=== PATIENT | female | born 1955 | race Caucasian/White ===

== ENCOUNTER 2018-10-14 18:20 | Inpatient (IN) | payer BC ==
[~2018-10-14] VITALS: Ht 172.7 cm; Wt 86.0 kg
--- NOTE | ~2018-10-14 | HEMODYNAMI ---
PATIENT:MICKY GARCIA MEDICAL RECORD: [id number] : 55 LOCATION:[facility] D.2138 ADMISSION DATE: 10/14/18 Generatedon:10/15/201811:21 Patient name: MICKY GARCIA Patient #: [id number] SSN: : 1955 Date of study: 10/15/2018 Page: Of Hemodynamic Procedure Report Patient Data Patient Demographics Procedure consent was obtained First Name: MICKY Gender: Female Last Name: JOSE : 1955 Middle Initial: PREETI Age: 63 year(s) Patient #: [id number] Race: Unknown Additional ID: [id number] Contact details [address]: [address] [place] [address] State: [place] City: [place] Zip code: [address] Past Medical History Allergies Allergen Reaction Date Comments Reported Codeine 10/15/2018 Other allergy 10/15/2018 benadryl Admission Admission Data Admission Date: 10/14/2018 Admission Time: 20:34 Room #: D.2138 Procedure Procedure Types Cath Procedure Diagnostic Procedure [facility] w/Coronaries Sedation Charges Moderate Sedation up to 30 minutes PCI Procedure Coronary Stent Coronary Stent Initial Procedure Description Procedure Date Procedure Date: 10/15/2018 Procedure Start Time: 10:35 Procedure End Time: 11:20 Procedure Staff Name Function Karthikeyan Mays MD Performing Physician Tatiana De León RT Monitor Monique Turner RN Nurse Jermain Garcia RT Scrub Procedure Data Cath Procedure Fluoroscopy Diagnostic fluoroscopy Total fluoroscopy Time: 6.1 time: 6.1 min min Diagnostic fluoroscopy Total fluoroscopy dose: 390 dose: 390 mGy mGy Contrast Material Contrast Material Type Amount (ml) Isovue 300 170 Entry Location Entry Primary Successful Side Size Upsize Upsize Entry Closure Ordoñez ccessful Closure Location (Fr) 1 (Fr) 2 (Fr) Remarks Device Remarks Femoral Right 5 Fr Manual vein Compression Femoral Right 5 Fr 6 Fr Exoseal artery Short Estimated blood loss: 5 ml Diagnostic catheters Device Type Used For End Catheter Placement MULTIPACK JL 4.0 5Fr Left Coronary catheter Angiography MULTIPACK 3DRC 5Fr Right Coronary catheter Angiography MULTIPACK Pigtail 5 Fr LV Angiography catheter Procedure Complications No complications Procedure Medications Medication Administration Route Dosage Oxygen etCO2 Nasal cannula 2 l/min Lidocaine 2% added to field 20 Heparin Flush Bag added to field 2 bags (1000units/500ml NS) 0.9% NaCl I.V. 100 ml/hr Versed I.V. 1 mg Fentanyl I.V. 50 mcg Versed I.V. 1 mg Fentanyl I.V. 25 mcg Heparin Bolus I.V. 8500 units Nitroglycerin IC/IA I.C. 100 mcg Nitroglycerin IC/IA I.C. 100 mcg Fentanyl I.V. 25 mcg Integrilin (Bolus I.V. 7.9 ml 2mg/ml) Morphine I.V. 4 mg unlisted medication 1 Effient P.O. 60 mg Hemodynamics Rest Heart Rate: 60 (bpm) Pressure Samples Time Site Value (mmHg) Purpose Heart Use Rate(bpm) 10:46 LV 123/13,28 EDP 59 10:47 AO 132/77(98) Pullback 63 10:47 LV 125/10,28 Pullback 63 Gradients Valve Time Site 1 Site 2 Mean SEP/DFP Peak To Heart Use (mmHg) (sec/min) Peak Rate (mmHg) (bpm) Aortic 10:47 LV AO 0 12 0 63 125/10,28 132/77(98) Calculations Valve P-P Mean Valve Index Valve Source Name Gradient Area Flow (cm2) Aortic 0 0 0 0 Snapshots Pre Cath Intra NCS Post Cath Vital Signs Time Heart Resp SPO2 etCO2 NIBP (mmHg) Rhythm Pain Sedation Rate (ipm) (%) (mmHg) Status Level (bpm) 10:25:56 64 12 99 29.8 118/73(93) NSR 0 (11) 10(A) , No pain 10:30:14 63 14 97 23.1 115/79(94) NSR 0 (11) 10(A) , No pain 10:34:30 62 22 96 23.1 117/76(86) NSR 0 (11) 9(A) , No pain 10:38:48 61 15 96 22.4 111/71(85) NSR 0 (11) 9(A) , No pain 10:43:02 63 17 95 20.9 116/75(92) NSR 0 (11) 9(A) , No pain 10:47:16 61 14 96 26.9 119/71(88) NSR 0 (11) 9(A) , No pain 10:51:22 64 15 95 25.4 106/73(87) NSR 0 (11) 9(A) , No pain 10:55:36 66 24 94 24.6 107/69(90) NSR 0 (11) 9(A) , No pain 10:59:48 67 12 97 21.6 121/71(93) NSR 0 (11) 9(A) , No pain 11:04:04 64 19 97 25.4 124/81(108) NSR 6 (11) 9(A) , Intense 11:08:16 56 12 97 13.4 140/95(124) NSR 6 (11) 10(A) , Intense 11:12:38 61 16 96 26.9 136/88(115) NSR 6 (11) 10(A) , Intense 11:16:56 60 12 96 18.7 136/87(122) NSR 6 (11) 10(A) , Intense 11:18:37 63 15 96 30.6 141/87(117) NSR 6 (11) 10(A) , Intense Medications Time Medication Route Dose Verified Delivered Reason Notes Effectiveness by by 10:28:36 Oxygen etCO2 2 Karthikeyan Buffie used for Nasal l/min Christos Turner RN procedure cannula 10:28:43 Lidocaine 2% added 20ml Karthikeyan Karthikeyan for local to vial Christos Mays MD anesthetic field 10:28:50 Heparin Flush added 2 Karthikeyan Karthikeyan used for Bag to bags Christos Mays MD procedure (1000units/500ml field NS) 10:29:00 0.9% NaCl I.V. 100 Karthikeyan Buffie Per physician ml/hr Christos Turner RN 10:31:33 Versed I.V. 1 mg Karthikeyan Buffie for sedation Christos Turner RN 10:31:40 Fentanyl I.V. 50 Karthikeyan Buffie for sedation mcg Christos Turner RN 10:35:10 Versed I.V. 1 mg Karthikeyan Buffie for sedation Christos Turner RN 10:39:20 Fentanyl I.V. 25 Karthikeyan Buffie for sedation mcg Christos Turner RN 10:52:25 Heparin Bolus I.V. 8500 Karthikeyan Buffie for verif ied units Christos Turner RN anticoagulation with dr mays 10:52:45 Nitroglycerin I.C. 100 Karthikeyan Karthikeyan for IC/IA mcg Christos Mays MD vasodilation 10:59:20 Nitroglycerin I.C. 100 Karthikeyan Karthikeyan for IC/IA mcg Christos Mays MD vasodilation 11:02:58 Fentanyl I.V. 25 Karthikeyan Buffie for sedation mcg Christos Turner RN 11:06:59 Integrilin I.V. 7.9 Karthikeyan Buffie for waste d (Bolus 2mg/ml) ml Christos Turner RN antiplatelet 2.1 ml therapy of vial 11:11:17 Morphine I.V. 4 mg Karthikeyan Buffie for chest pain Christos Turner RN 11:15:27 Nitro bid to 1 Karthikeyan Buffie for chest pain ointment chest inch Christos Turner RN wall 11:17:07 Effient P.O. 60 mg Karthikeyan Buffie for Christos Turner RN antiplatelet therapy Procedure Log Time Note 10:08:17 Time tracking: Regular hours (M-F 7:00 - 5:00) 10:08:21 Plan of Care:Hemodynamics will remain stable., Cardiac rhythm will remain stable., Comfort level will be maintained., Respiratory function will remain adequate., Patient/ family verbilizes understanding of procedure., Procedure tolerated without complication., Recovers from procedure without complications.. 10:08:24 Jermain EVANS(R) sent for patient. Start room use. 10:17:45 Patient received from PCU to CCL 3 Alert and oriented. Tansferred to table in Supine position. 10:17:48 Warm blankets applied, and messi hugger turned on for patient comfort. 10:17:48 Correct patient and procedure confirmed by team. 10:17:50 Signed procedure consent form obtained from patient. 10:17:52 ECG and BP/O2 sat monitors applied to patient. 10:17:54 Full Disclosure recording started 10:24:41 Vital chart was started 10:24:47 Rhythm: sinus rhythm 10:25:13 H&P Date Dictated: 10/15/2018 Within 30 days and on chart.. 10:25:14 Pre-procedure instructions explained to patient. 10:25:15 Pre-op teaching completed and patient verbalized understanding. 10:25:18 Family in patients room. 10:25:19 Patient NPO since Midnight. 10:26:17 Patient allergic to Codeine 10:26:28 Patient allergic to Other allergybenadryl 10:26:30 Is the patient allergic to Iodine/contrast media? No. 10:26:31 Is patient on blood thinner?No 10:26:33 Patient diabetic? No. 10:26:38 Previous problem with sedation/anesthesia? No ? 10:26:39 Snore? Yes 10:26:40 Sleep apnea? No 10:26:41 Deviated septum? No 10:26:41 Opens mouth fully? Yes 10:26:42 Sticks out tongue? Yes 10:26:43 Airway obstruction? No ? 10:26:45 Dentures? Yes in 10:26:47 Pre procedure: right dorsailis pedis pulse 2+ Normal; easily identifiable; not easily obliterated 10:26:59 Patient pain scale 0/10 ?. 10:27:14 IV patent on arrival in left forearm with 0.9% NaCl at [facility] 10:27:17 Lab results completed and on chart. 10:27:20 Right groin area was prepped with chlora-prep and draped in sterile fashion 10:27:20 Alarms reviewed by R. N. 10:27:21 Sharps counted by scrub and verified by R.N. 10:27:23 Use device set Femoral Dx 10:27:24 ACIST Syringe (64000) opened to sterile field. 10:27:25 Bag Decanter (2002S) opened to sterile field. 10:27:25 Medline Cath Pack ([id number]) opened to sterile field. 10:27:26 DIAGNOSTIC WIRE .035 260cm J wire (536415) opened to sterile field. 10:27:26 ACIST Hand Control (93675) opened to sterile field. 10:27:27 ACIST Manifold (17227) opened to sterile field. 10:27:28 DIAGNOSTIC Multipack 5Fr catheter set (GO4240) opened to sterile field. 10:27:28 Tegaderm 4 x 4 (1626W) opened to sterile field. 10:27:29 SHEATH 5FR [place] (AYF127) opened to sterile field. 10:28:36 Oxygen 2 l/min etCO2 Nasal cannula was administered by Monique Turner RN; used for procedure; 10::43 Lidocaine 2% 20ml vial added to field was administered by Karthikeyan Mays MD; for local anesthetic; 10:28:50 Heparin Flush Bag (1000units/500ml NS) 2 bags added to field was administered by Karthikeyan Mays MD; used for procedure; 10:29:00 0.9% NaCl 100 ml/hr I.V. was administered by Monique Turner RN; Per physician; 10:30:40 Final Timeout: patient, procedure, and site verified with staff and physician. All members of the team are in agreement. 10:30:41 Right groin site verified by team. 10:30:44 Maximum allowable Isovue 300 dose 300ml. Physician notified. (300ml for normal creatinines. For patients with creatinine of 1.7 or higher multiply weight(kg) x 5 divided by creatinine.) 10:30:48 Fire Safety Assessment: A--An alcohol-based skin anteseptic being used preoperatively., C--Open oxygen or nitrous oxide is being used., D--An ESU, laser, or fiber-optic light is being used. 10:30:51 Physical assessment completed. ASA score P 2 - A patient with mild systemic disease as per Karthikeyan Mays MD. 10:30:55 Sedation plan: IV Moderate Sedation Medication:Versed, Fentanyl 10:31:33 Versed 1 mg I.V. was administered by Moniqeu Turner RN; for sedation; 10:31:40 Fentanyl 50 mcg I.V. was administered by Monique Turner RN; for sedation; 10:35:10 Versed 1 mg I.V. was administered by Monique Turner RN; for sedation; 10:35:19 Procedure started. 10:35:21 Local anesthetic to right femoral artery with Lidocaine 2% by Karthikeyan Mays MD.INITIAL ACCESS ONLY 10:35:30 A 5 Fr sheath was inserted into the Right Femoral vein 10:35:32 Zero performed for pressure channel P1 10:35:38 Baseline sample Acquired. 10:38:33 A 5 Fr sheath was inserted into the Right Femoral artery 10:39:20 Fentanyl 25 mcg I.V. was administered by Monique Turner RN; for sedation; 10:40:40 A MULTIPACK JL 4.0 5Fr catheter was advanced over the wire and used for Left Coronary Angiography. 10:43:03 Catheter removed. 10:43:23 A MULTIPACK 3DRC 5Fr catheter was advanced over the wire and used for Right Coronary Angiography. 10:43:30 Use device set MAYS PCI 10:43:31 SHEATH 6FR [place] (EQS092) opened to sterile field. 10:43:35 TUBING High Pressure Extension Tubing (Mays) ([id number]) opened to sterile field. 10:43:36 INFLATOR Merit BasixCompak (UP4340) opened to sterile field. 10:44:45 Catheter removed. 10:44:52 A MULTIPACK Pigtail 5 Fr catheter was advanced over the wire and used for LV Angiography. 10:46:10 LV gram done using DALTON 10:46:11 LV hemodynamics recorded. 10:46:14 Injector settings: Ml/sec: 10, Volume: 20, 10:46:42 EF : 40 % 10:47:16 Catheter removed. 10:47:51 Sheath upsized to a 6 Fr Short. 10:48:22 BMW 300cm [place] 2 J wire ([id number]) opened to sterile field. 10:48:24 GUIDE 6FR XBLAD 3.5 catheter ([id number]) opened to sterile field. 10:49:58 6 Fr XBLAD 3.5 guide catheter was inserted over the wire 10:52:25 Heparin Bolus 8500 units I.V. was administered by Monique Turner RN; for anticoagulation; verified with dr mays 10:52:45 Nitroglycerin IC/IA 100 mcg I.C. was administered by Karthikeyan Mays MD; for vasodilation; 10:55:17 BMW wire advanced. 10:57:40 Place stent Inflation Number: 1 A KRISTEL OTW 2.5 x 18 stent ([id number]) was prepped and advanced across the Mid LAD. The stent was deployed at 8 FARHAT for 0:14 (min:sec). 10:58:28 Stent catheter was removed intact over wire. 10:59:20 Nitroglycerin IC/IA 100 mcg I.C. was administered by Karthikeyan Mays MD; for vasodilation; 11:01:40 Place stent Inflation Number: 1 A KRISTEL RX 3.0 x 18 stent ([id number]) was prepped and advanced across the Prox LAD. The stent was deployed at 14 FARHAT for 0:12 (min:sec). 11:02:05 Stent catheter was removed intact over wire. 11:02:58 Fentanyl 25 mcg I.V. was administered by Monique Turner RN; for sedation; 11:03:36 Wire removed. 11:03:36 Guide catheter removed. 11:03:46 Sheath removed intact; hemostasis achieved with Exoseal to the Right Femoral artery. 11:03:56 Procedure ended.(Physican Out) 11:04:01 Fluoroscopy time 06.10 minutes. 11:04:08 Sheath removed intact; hemostasis achieved with Manual Compression to the Right Femoral vein. 11:04:19 Fluoroscopy dose: 390 mGy 11:04:19 Flurop Dose total: 390 11:04:24 Contrast amount:Isovue 300 170ml. 11:05:35 Insertion/operative site no bleeding no hematoma. 11:05:37 Post-op/insertion site Right Femoral artery dressed using a 4 x 4 and Tegaderm. 11:05:40 Post right femoral artery:stable, clean and dry 11:05:44 Post right femoral vein:stable, clean and dry 11:05:46 Post Procedure Pulses reassessed and unchanged 11:05:49 Post-procedure physical assessment completed. ASA score P 2 - A patient with mild systemic disease as per Karthikeyan Mays MD. 11:05:52 Post procedure rhythm: unchanged. 11:05:55 Estimated blood loss: 5 ml 11:05:59 Sharps counted by scrub and verified by R.N. 11:06:00 Post procedure instruction explained to patient.Patient verbalizes understanding. 11:06:00 Patient needs reinforcement of post procedure teaching. 11:06:51 Procedure type changed to Cath procedure, Diagnostic procedure, LHC, LHC w/Coronaries, Sedation Charges, Moderate Sedation up to 30 minutes, PCI procedure, Coronary Stent, Coronary Stent Initial 11:06:59 Integrilin (Bolus 2mg/ml) 7.9 ml I.V. was administered by Monique Turner RN; for antiplatelet therapy; wasted 2.1 ml of vial 11:07:38 Procedure Complication : No complications 11:07:40 See physician's report for complete and final results. 11:09:32 EXOSEAL 6Fr (EX600) opened to sterile field. 11:09:59 Procedure and supply charges have been captured, reviewed, submitted and are correct. 11:11:17 Morphine 4 mg I.V. was administered by Monique Turner RN; for chest pain; 11:15:27 Nitro bid ointment 1 inch to chest wall was administered by Monique Turner RN; for chest pain; 11:17:07 Effient 60 mg P.O. was administered by Monique Turner RN; for antiplatelet therapy; 11:17:12 Report given to PCU. 11:17:28 Vital chart was started 11:20:38 Vital chart was stopped 11:20:44 Patient transfered to PCU with Bed. 11:20:53 Procedure ended. 11:20:53 Full Disclosure recording stopped 11:21:00 End room use (Document Last) Intervention Summary Intervention Notes Time ActionType Lesion and Equipment Used Action# Pressure Duration Attributes 10:57:40 Place stent Mid LAD KRISTEL OTW 2.5 x 1 8 00:14 18 stent ([id number]) 11:01:40 Place stent Prox LAD KRISTEL RX 3.0 x 1 14 00:13 18 stent ([id number]) Device Usage Item Name Manufacture Quantity Catalog Hospital Part [facility] Lot# / Number Charge Number Stock Stock Serial# Code ACIST Syringe Acist 1 45762 359676 804785 804987 20 (37332) Medical Systems Inc Bag Decanter Microtek 1 197609 53366 888658 5 (2001S) Medical Inc. Medline Cath Medline 1 [id number] 892906 96802 069546 5 Pack ([id number]) DIAGNOSTIC St Fady 1 484507 852268 349441 524614 30 WIRE .035 260cm J wire (183453) ACIST Hand Acist 1 32975 360758 546857 611085 5 Control Medical (70915) Systems Inc ACIST Manifold Acist 1 07301 160956 470625 153895 5 (79526) Medical Systems Inc DIAGNOSTIC Cardinal 1 KC8580 664802 39628 817691 30 Multipack 5Fr Health catheter set (BR0228) Tegaderm 4 x 4 3M 1 1626W 740638 841129 467145 5 (1626W) SHEATH 5FR Terumo 1 MZR161 007042 078475 262530 5 [place] (HFI921) MULTIPACK JL Cardinal 1 148499 5 4.0 5Fr Health catheter MULTIPACK 3DRC Cardinal 1 755158 5 5Fr catheter Health SHEATH 6FR Terumo 1 REX100 362221 052044 432100 40 [place] (VMN271) TUBING High Merit 1 [id number] 866229 88093 790082 10 Pressure Medical Extension Tubing (Mays) ([id number]) INFLATOR Merit Merit 1 OV1811 835437 908944 959118 15 [facility] (UJ7842) MULTIPACK Cardinal 1 371777 5 Pigtail 5 Fr Health catheter BMW 300cm Obrien 1 [id number] 188638 123272 642949 5 [place] 2 J Vascular wire (8768930E) GUIDE 6FR Cardinal 1 35078022 361502 547925 569400 10 XBLAD 3.5 Health catheter (11041143) KRISTEL OTW 2.5 x Medtronic 1 [id number] 667348 04513 513672 5 [id number] 18 stent ([id number]) KRISTEL RX 3.0 x Medtronic 1 [id number] 216695 6063533 607603 5 [id number] 18 stent ([id number]) EXOSEAL 6Fr Cardinal 1 EX600 412947 600534 060061 10 (EX600) Health Signature Audit [place] Stage Time Signature Unsigned Intra-Procedure 10/15/2018 Tatiana 11:21:20 AM Counts RT(R) Signatures Monitor : Tatiana Signature : Counts RT Date : Time : [facility] [address] [facility] [place] [address]
[2018-10-14 19:29] LABS: BASOPHILS 0.2 % (0-2); EOSINOPHILS 0.1 % (0-7); HEMATOCRIT 42.8 % (36.0-48.0); HEMOGLOBIN 14.3 g/dL (12-16); IMMATURE GRANULOCYTES 0.3 % (0-5); LYMPHOCYTES 11.7 % (15-50); MCH 29.9 pg (26.0-34.0); MCHC 33.4 g/dL (31.0-37.0); MCV 89.4 fL (80.0-100.0); MEAN PLATELET VOLUME 10.5 fL (7.4-10.4); MONOCYTES 1.8 % (2-11); NEUTROPHILS 85.9 % (40-80); PLATELET COUNT 196 10x3/uL (130-400); RBC 4.79 10x6/uL (4.00-5.40); RDW 13.5 % (11.5-14.5); WBC 10.8 10x3/uL (4.8-10.8)
[2018-10-14 19:39] LABS: INR 1.02 (0.85-1.17); PROTIME 12.9 SECONDS (11.6-15.0)
[2018-10-14 19:50] LABS: ALBUMIN 3.2 g/dL (3.4-5.0); ALKALINE PHOSPHATASE 99 U/L (46-116); ALT (SGPT) 30 U/L (10-68); CALC OSMOLALITY 278 mosm/kg (275-300); CALCIUM 8.4 mg/dL (8.5-10.1); CARBON DIOXIDE 26.4 mmol/L (21.0-32.0); CHLORIDE - SERUM 105 mmol/L (98-107); GLUCOSE 126 mg/dL (74-106); POTASSIUM - SERUM 4.3 mmol/L (3.5-5.1); PROTEIN - SERUM 7.7 g/dL (6.4-8.2); SODIUM 139 mmol/L (136-145); UREA NITROGEN 10 mg/dL (7-18); eGFR NON AFRICAN AMERICAN 59 mL/min (90-120)
[2018-10-14 20:05] LABS: AMYLASE - SERUM 37 U/L (25-115); CREATINE KINASE 190 UL (21-215); LIPASE 187 U/L (73-393); PRO BNP 4355 pg/mL (0-125)
[2018-10-14 20:15] LABS: CKMB 13.1 U/L (0.0-3.6)
[2018-10-14 20:53] VITALS: BP 125/93
[2018-10-14 22:25] VITALS: BP 110/76
[2018-10-14 23:23] VITALS: BP 110/74
[2018-10-15] VITALS (7 sets, daily range): BP systolic 103–126; BP diastolic 63–76; Ht 172.7 cm; Wt 86.0 kg
[2018-10-15] MEDS ORDERED: SYNTHROID75 MCG PO (02:00)
[2018-10-15] MEDS ORDERED: COZAAR25 MG PO (02:01)
[2018-10-15] MEDS ORDERED: CYCLOBENZAPRINE10 MG PO (02:01)
[2018-10-15 07:20] LABS: BASOPHILS 0.2 % (0-2); EOSINOPHILS 0.2 % (0-7); HEMATOCRIT 42.5 % (36.0-48.0); IMMATURE GRANULOCYTES 0.2 % (0-5); MCHC 32.9 g/dL (31.0-37.0); MEAN PLATELET VOLUME 10.9 fL (7.4-10.4); MONOCYTES 7.9 % (2-11); NEUTROPHILS 69.5 % (40-80); PLATELET COUNT 207 10x3/uL (130-400); RBC 4.67 10x6/uL (4.00-5.40); RDW 13.8 % (11.5-14.5); WBC 12.7 10x3/uL (4.8-10.8)
[2018-10-15 08:14] LABS: ALBUMIN 3.1 g/dL (3.4-5.0); BILIRUBIN - TOTAL 0.16 mg/dL (0.2-1.3); CALCIUM 8.6 mg/dL (8.5-10.1); CARBON DIOXIDE 29.8 mmol/L (21.0-32.0); PROTEIN - SERUM 7.3 g/dL (6.4-8.2)
[2018-10-15 08:19] LABS: TROPONIN-I 2.877 ng/mL (0.000-0.060)
[2018-10-15 08:39] LABS: ANION GAP 10.1 mmol/L (8-16); POTASSIUM - SERUM 3.9 mmol/L (3.5-5.1)
[2018-10-16 04:09] VITALS: BP 113/74
[2018-10-16 09:45] VITALS: BP 123/86
[2018-10-16] MEDS ORDERED: ASPIRIN81 MG PO (13:29)
[2018-10-16] MEDS ORDERED: COREG 3.1253.125 MG PO (13:34)
[2018-10-16] MEDS ORDERED: PRAVACHOL20 MG PO (13:36)
[2018-10-16] MEDS ORDERED: EFFIENT10 MG PO (13:38)
--- NOTE | 2018-10-16 17:37 | MORECARE ---
CASE MANAGEMENT DISCHARGE SUMMARY PATIENT: MICKY GARCIA UNIT: [id number] ADM DATE: 10/14/18 AGE: 63 : 55 SEX: F ROOM/BED: D.0943 AUTHOR: SAMUEL,DOC PHYSICIAN: REFERRING PHYSICIAN: LAYLA IYER M.D. DATE OF SERVICE: 10/16/18 Discharge Plan Patient Name: MICKY GARCIA Facility: [facility]:[place] : 1955 Planned Disposition: Home Anticipated Discharge Date: 10/16/18 Discharge Date: Expected LOS: 2 Initial Reviewer: [email or web address] Initial Review Date: 10/16/2018 Generated: 10/16/18 6:37 pm Comments DCP- Discharge Planning Updated by [email or web address]: Patric Askew on 10/16/18 4:[address] Patient Name: MICKY GARCIA Admission Status: ER Accout number: [id number] Admission Date: 10-14-2018 : 1955 Admission Diagnosis: Attending: LAYLA IYER Current LOS: 2 Anticipated DC Date: 10-16-2018 Planned Disposition: Home Primary Insurance: [employer] O Discharge Planning Comments: CM MET WITH PT AND FAMILY IN ROOM TO DISCUSS DISCHARGE PLANNING AND NEEDS. MICKY GARCIA provided verbal consent to discuss current and ongoing needs with/in the presence of: DAUGHTER RANDY AND SON YARA. PT REPORTS LIVING AT HOME INDEPENDENTLY WITH HER 16 YEAR OLD DAUGHTER. PT HAS NO MEDICAL EQUIPMENT AND NO OUTSIDE SERVICES ASSISTING IN THE HOME. CM DISCUSSED AVAILABILITY OF HOME HEALTH, REHAB SERVICES AND MEDICAL EQUIPMENT. PT DENIES DISCHARGE NEEDS, REPORTS HER SON WILL PICK HER UP FOR DISCHARGE HOME. ACETYLENE BURNER NURSE NOTIFIED. Offset Press Assistant: Patric Askew DCPIA - Discharge Planning Initial Assessment Updated by [email or web address]: aPtric Askew on 10/16/18 5:34 pm * Is the patient Alert and Oriented? Yes * How many steps to enter\exit or inside your home? * PCP DR LEVI * Pharmacy [facility] ON [address] * Preadmission Environment Home Alone * ADLs Independent * Equipment None * Other Equipment [facility], PREFERRED PROVIDER * List name and contact numbers for known caregivers / representatives who currently or will assist patient after discharge: PATRICIA RUIZR, * Verbal permission to speak to the caregivers and representatives has been obtained from the patient. Yes * Community resources currently utilized None * Please name any agencies selected above. NONE * Additional services required to return to the preadmission environment? No * Can the patient safely return to the preadmission environment? Yes * Has this patient been hospitalized within the prior 30 days at any hospital? No Patient Name: MICKY GARCIA Page [id number] at 1737 All edits/amendments must be made on the electronic document DICTATION DATE: 10/16/181735 RETAIL RESET MERCHANDISER: NICHELLE 10/16/181735 RPT#: [id number] DC DATE: STATUS: ADM IN [facility] [address] [place] [address] END OF REPORT
== END 2018-10-16 17:46 | disposition home or self-care (01) | DRG 247 ==
LOC: D.ER 18:20 → D.M2 20:34 → D.EDHOLD 20:34 → D.M2 23:58
PROVIDERS: Emergency Medicine; Family Medicine; ADMIT Internal Medicine Cardiovascular Disease; ATTEND Internal Medicine Cardiovascular Disease
PROC: B2111ZZ Fluoroscopy of Multiple Coronary Arteries using Low Osmolar Contrast (ICD-10-PCS; 2018-10-15)
PROC: B2151ZZ Fluoroscopy of Left Heart using Low Osmolar Contrast (ICD-10-PCS; 2018-10-15)
PROC: 027035Z Dilation of Coronary Artery, One Artery with Two Drug-eluting Intraluminal Devices, Percutaneous Approach (ICD-10-PCS; principal; 2018-10-15 10:08)
PROC: 4A023N7 Measurement of Cardiac Sampling and Pressure, Left Heart, Percutaneous Approach (ICD-10-PCS; 2018-10-15 10:08)
DX: I21.4 Non-ST elevation (NSTEMI) myocardial infarction (principal); I25.10 Atherosclerotic heart disease of native coronary artery without angina pectoris; I10 Essential (primary) hypertension

== ENCOUNTER 2018-11-21 07:13 | Outpatient (CLI) | payer BC ==
[~2018-11-21] VITALS: Ht 172.7 cm; Wt 81.8 kg
--- NOTE | ~2018-11-21 | HEMODYNAMI ---
PATIENT:MICKY GARCIA MEDICAL RECORD: [id number] : 55 LOCATION:[facility] ADMISSION DATE: 11/21/18 Generatedon:11/21/20189:41 Patient name: MICKY GARCIA Patient #: [id number] SSN: : 1955 Date of study: 11/21/2018 Page: Of Hemodynamic Procedure Report Patient Data Patient Demographics Procedure consent was obtained First Name: MICKY Gender: Female Last Name: JOSE : 1955 [facility] Initial: PREETI Age: 63 year(s) Patient #: [id number] Race: Unknown Additional ID: [id number] Contact details [address]: [address] [place] [address] State: [place] City: [place] Zip code: [address] Past Medical History Allergies Allergen Reaction Date Comments Reported Codeine 10/15/2018 Other allergy 10/15/2018 benadryl Codeine 11/21/2018 Admission Admission Data Admission Date: 11/21/2018 Admission Time: 7:13 Height (in.): 67.72 BSA: 1.95 (m2) Height (cm.): 172 BMI: 27.72 (kg/m2) Weight (lbs.): 180.78 Weight (kg.): 82 Lab Results Lab Result Date: 11/21/2018 Lab Result Time: 0:00 Biochemistry Name Units Result Min Max BUN mg/dl 14 --(--*-)-- 7 18 Creatinine mg/dl 1.2 --(---*)-- 0.6 1.3 CBC Name Units Result Min Max Hematocrit % 42 --(*---)-- 42 54 Hemoglobin g/dl 14 --(*---)-- 13.5 17.5 Procedure Procedure Types Cath Procedure Diagnostic Procedure Sedation Charges Moderate Sedation up to 15 minutes PCI Procedure Coronary Stent Coronary Stent Initial Procedure Description Procedure Date Procedure Date: 11/21/2018 Procedure Start Time: 9:17 Procedure End Time: 9:41 Procedure Staff Name Function Karthikeyan Sher MD Performing Physician Buck Riggs RT Final Inspector Balance Wheel Kimmy Newberry RT Monitor Radha Eliud RT Scrub Oliva Trujillo RN Nurse Procedure Data Cath Procedure Fluoroscopy Diagnostic fluoroscopy Total fluoroscopy Time: 4.7 time: 4.7 min min Diagnostic fluoroscopy Total fluoroscopy dose: 513 dose: 513 mGy mGy Contrast Material Contrast Material Type Amount (ml) Isovue 300 82 Entry Location Entry Primary Successful Side Size Upsize Upsize Entry Closure Succes sful Closure Location (Fr) 1 (Fr) 2 (Fr) Remarks Device Remarks Femoral Right 6 Fr Exoseal artery Short Estimated blood loss: 10 ml Procedure Complications No complications Procedure Medications Medication Administration Route Dosage 0.9% NaCl I.V. 100 ml/hr Oxygen etCO2 Nasal cannula 2 l/min Lidocaine 2% added to field 20 Heparin Flush Bag added to field 2 bags (1000units/500ml NS) Versed I.V. 2 mg Fentanyl I.V. 50 mcg Versed I.V. 1 mg Fentanyl I.V. 25 mcg Heparin Bolus I.V. 8000 units Nitroglycerin IC/IA I.C. 50 mcg Hemodynamics Rest BSA: 1.95 (m2) HGB: 14 (g/dl) O2 Consumption: Estimated: 174.33 (ml/min) O2 Cons umption indexed: Estimated:89.4 (ml/min/m) Heart Rate: 58 (bpm) Snapshots Pre Cath Intra NCS Post Cath Vital Signs Time Heart Resp SPO2 etCO2 NIBP Rhythm Pain Sedation Rate (ipm) (%) (mmHg) (mmHg) Status Level (bpm) 9:06:05 55 14 98 30.7 117/72(95) SB 0 (11) 10(A) , No pain 9:10:22 59 18 98 22.5 105/71(86) SB 0 (11) 10(A) , No pain 9:14:31 60 23 97 17.2 114/66(89) NSR 0 (11) 10(A) , No pain 9:18:41 60 16 97 24.7 108/64(82) NSR 0 (11) 9(A) , No pain 9:22:51 62 17 97 27 102/69(85) NSR 0 (11) 9(A) , No pain 9:26:59 62 20 98 26.9 111/70(81) NSR 0 (11) 9(A) , No pain 9:28:04 63 21 98 12.7 116/67(81) NSR 0 (11) 9(A) , No pain 9:32:14 62 18 97 17.9 107/63(73) NSR 0 (11) 9(A) , No pain 9:36:28 64 17 96 16.5 107/55(78) NSR 0 (11) 10(A) , No pain 9:40:42 63 25 95 20.2 103/58(90) NSR 0 (11) 10(A) , No pain Medications Time Medication Route Dose Verified Delivered Reason Notes Effectiveness by by 9:05:11 0.9% NaCl I.V. 100 Karthikeyan Oliva used for ml/hr Christos Trujillo supervisor fruit grading 9:05:18 Oxygen etCO2 2 Karthikeyan Oliva used for Nasal l/min Christos Trujillo procedure cannula RN 9:05:24 Lidocaine 2% added 20ml Karthikeyan Karthikeyan for local to vial Christos Sher MD anesthetic field 9:05:29 Heparin Flush added 2 Karthikeyan Karthikeyan used for Bag to bags Christos Sher MD procedure (1000units/500ml field NS) 9:12:01 Fentanyl I.V. 50 Karthikeyan Oliva for sedation mcg Christos Trujillo RN 9:12:55 Versed I.V. 2 mg Karthikeyan Oliva for sedation Christos Trujillo RN 9:17:36 Versed I.V. 1 mg Karthikeyan Oliva for sedation Christos Trujillo RN 9:17:40 Fentanyl I.V. 25 Karthikeyan Oliva for sedation mcg Christos Trujillo RN 9:23:11 Heparin Bolus I.V. 8000 Karthikeyan Oliva for verifi ed units Christos Trujillo anticoagulation with Dr. AMANDA Sher 9:32:31 Nitroglycerin I.C. 50 Karthikeyan Karthikeyan for IC/IA mcg Christos Sher MD vasodilation Procedure Log Time Note 8:38:41 Signed procedure consent form obtained from patient. 8:38:43 Diagnostic Cath status Elective 8:38:45 Time tracking: Regular hours (M-F 7:00 - 5:00) 8:38:48 Plan of Care:Hemodynamics will remain stable., Cardiac rhythm will remain stable., Comfort level will be maintained., Respiratory function will remain adequate., Patient/ family verbilizes understanding of procedure., Procedure tolerated without complication., Recovers from procedure without complications.. 8:40:35 Patient allergic to Codeine 8:50:48 Lab Result : BUN 14 mg/dl 8:50:48 Lab Result : Creatinine 1.2 mg/dl 8:50:48 Lab Result : Hemoglobin 14 g/dl 8:50:48 Lab Result : Hematocrit 42 % 8:50:57 Patient Weight : 180.78 lbs 8:50:59 Patient Height : 67.72 inches 8:51:27 Buck Smitait RT(R) sent for patient. Start room use. 8:58:45 Patient received from Pre/Post Procedure Room to CCL 1 Alert and oriented. Tansferred to table in Supine position. 8:58:46 Warm blankets applied, and messi hugger turned on for patient comfort. 8:58:46 Correct patient and procedure confirmed by team. 8:58:47 ECG and BP/O2 sat monitors applied to patient. 9:04:55 Rhythm: sinus bradycardia 9:04:56 Vital chart was started 9:04:58 Baseline sample Acquired. 9:05:10 H&P Date Dictated: 10/30/2018 Within 30 days and on chart., H&P Addendum completed by physician on day of procedure. (MUST COMPLETE FOR ALL OUTPATIENTS). 9:05:10 Pre-procedure instructions explained to patient. 9:05:11 0.9% NaCl 100 ml/hr I.V. was administered by Oliva Trujillo RN; used for procedure; 9:05:11 Pre-op teaching completed and patient verbalized understanding. 9:05:12 Family in patients room. 9:05:13 Patient NPO since Midnight. 9:05:17 Is patient on blood thinner?Yes 9:05:18 Oxygen 2 l/min etCO2 Nasal cannula was administered by Oliva Trujillo RN; used for procedure; 9:05:19 ACC The patient was administered the following blood thiners within the last 24 hours: ACCPlavix 9:05:21 Patient diabetic? No. 9:05:23 Patient not . Patient is over age 55. 9:05:24 Lidocaine 2% 20ml vial added to field was administered by Karthikeyan Sher MD; for local anesthetic; 9:05:28 Snore? No 9:05:29 Heparin Flush Bag (1000units/500ml NS) 2 bags added to field was administered by Karthikeyan Sher MD; used for procedure; 9:05:30 Previous problem with sedation/anesthesia? No ? 9:05:32 Sleep apnea? No 9:05:33 Deviated septum? No 9:05:34 Opens mouth fully? Yes 9:05:35 Sticks out tongue? Yes 9:05:37 Airway obstruction? No ? 9:05:41 Dentures? Yes IN TIGHT 9:05:50 Pre procedure: right dorsailis pedis pulse 1+ Palpable, but thready & weak; easily obliterated 9:05:53 Patient pain scale 0/10 ?. 9:06:02 IV patent on arrival in left hand with 0.9% NaCl at [facility]. 9:06:03 Lab results completed and on chart. 9:06:06 Right groin area was prepped with chlora-prep and draped in sterile fashion 9:06:07 Alarms reviewed by R. N. 9:06:08 Sharps counted by scrub and verified by R.N. 9:07:31 Use device set CATH PACK 9:07:32 ACIST Syringe (02832) opened to sterile field. 9:07:32 ACIST Hand Control (22226) opened to sterile field. 9:07:32 ACIST Manifold (53708) opened to sterile field. 9:07:33 Medline Cath Pack ([id number]) opened to sterile field. 9:07:33 Bag Decanter () opened to sterile field. 9:07:36 DIAGNOSTIC WIRE .035 260cm J wire ([id number]) opened to sterile field. 9:07:57 SHEATH 6FR [place] (GIN393) opened to sterile field. 9:07:57 BMW 300cm Straight Westhoff 2 wire ([id number]) opened to sterile field. 9:07:57 INFLATOR Merit BasixCompak (SD5127) opened to sterile field. 9:07:58 TUBING High Pressure Extension Tubing (Christos) ([id number]) opened to sterile field. 9:10:39 Full Disclosure recording started 9:11:59 --------ALL STOP TIME OUT------ 9:11:59 Final Timeout: patient, procedure, and site verified with staff and physician. All members of the team are in agreement. 9:12:01 Fentanyl 50 mcg I.V. was administered by Oliva Trujillo RN; for sedation; 9:12:01 Right groin site verified by team. 9:12:03 Maximum allowable Isovue 300 dose 300ml. Physician notified. (300ml for normal creatinines. For patients with creatinine of 1.7 or higher multiply weight(kg) x 5 divided by creatinine.) 9:12:07 Fire Safety Assessment: A--An alcohol-based skin anteseptic being used preoperatively., C--Open oxygen or nitrous oxide is being used., D--An ESU, laser, or fiber-optic light is being used. 9:12:11 Physical assessment completed. ASA score P 2 - A patient with mild systemic disease as per Karthikeyan Sher MD. 9:12:15 Sedation plan: IV Moderate Sedation Medication:Versed, Fentanyl 9:12:55 Versed 2 mg I.V. was administered by Oliva Trujillo RN; for sedation; 9:13:52 Zero performed for pressure channel P1 9:13:58 Zero performed for pressure channel P1 9:14:41 Zero performed for pressure channel P1 9:17:11 Procedure started. 9:17:25 GUIDE 6FR JR 4.0 catheter ([id number]) opened to sterile field. 9:17:35 Local anesthetic to right femoral artery with Lidocaine 2% by Karthikeyan Sher MD.INITIAL ACCESS ONLY 9:17:36 Versed 1 mg I.V. was administered by Oliva Trujillo RN; for sedation; 9:17:40 Fentanyl 25 mcg I.V. was administered by Oliva Trujillo RN; for sedation; 9:17:48 Zero performed for pressure channel P1 9:20:46 A 6 Fr Short sheath was inserted into the Right Femoral artery 9:21:21 6 Fr JR4 guide catheter was inserted over the wire 9:23:11 Heparin Bolus 8000 units I.V. was administered by Oliva Trujillo RN; for anticoagulation; verified with Dr. Sher 9:24:11 BMW 300 wire advanced. 9:25:28 Wire advanced across lesion. 9:30:07 Place stent Inflation Number: 1 A KRISTEL OTW 2.5 x 12 stent ([id number]) was prepped and advanced across the Dist RCA. The stent was deployed at 14 FARHAT for 0:10 (min:sec). 9:30:45 Stent catheter was removed intact over wire. 9:32:31 Nitroglycerin IC/IA 50 mcg I.C. was administered by Karthikeyan Sher MD; for vasodilation; 9:34:11 Wire removed. 9:34:12 Guide catheter removed. 9:34:19 EXOSEAL 6Fr (EX600) opened to sterile field. 9:37:30 Sheath removed intact; hemostasis achieved with Exoseal to the Right Femoral artery. 9:37:31 Procedure ended.(Physican Out) 9:37:59 Fluoroscopy time 04.70 minutes. 9:38:02 Flurop Dose total: 513 9:38:02 Fluoroscopy dose: 513 mGy 9:38:06 Contrast amount:Isovue 300 82ml. 9:38:08 Sharps counted by scrub and verified by R.N. 9:38:11 Post-op/insertion site Right Femoral artery dressed using a 4 x 4 and Tegaderm. 9:38:13 Post-procedure physical assessment completed. ASA score P 2 - A patient with mild systemic disease as per Karthikeyan Sher MD. 9:38:17 Post procedure rhythm: sinus rhythm 9:38:19 Estimated blood loss: 10 ml 9:38:21 Post procedure instruction explained to patient.Patient verbalizes understanding. 9:38:22 Patient needs reinforcement of post procedure teaching. 9:38:37 Procedure type changed to Cath procedure, Diagnostic procedure, Sedation Charges, Moderate Sedation up to 15 minutes, PCI procedure, Coronary Stent, Coronary Stent Initial 9:38:59 Procedure and supply charges have been captured, reviewed, submitted and are correct. 9:39:01 Procedure Complication : No complications 9:41:17 Vital chart was stopped 9:41:18 Report given to Pre/Post Procedure Room. 9:41:21 See physician's report for complete and final results. 9:41:24 Patient transfered to Pre/Post Procedure Room with Bed. 9:41:25 Procedure ended. 9:41:25 Full Disclosure recording stopped 9:41:28 End room use (Document Last) Intervention Summary Intervention Notes Time ActionType Lesion and Equipment Action# Pressure Duration Attributes Used 9:30:07 Place stent Dist RCA KRISTEL OTW 2.5 1 14 00:10 x 12 stent ([id number]) Device Usage Item Name Manufacture Quantity Catalog Hospital Part Current Minim al Lot# / Number Charge Number Stock Stock Serial# Code ACIST Syringe Acist 1 37773 361709 938966 466651 20 (79782) Medical Systems Inc ACIST Hand Acist 1 26996 650022 874434 846682 5 Control Medical (74899) Systems Inc ACIST Acist 1 04011 568462 044285 646946 5 Manifold Medical (32318) Systems Inc Medline Cath Medline 1 [id number] 631816 30701 933110 5 Pack ([id number]) Bag Decanter Microtek 1 2001S 891473 59925 156064 5 (2001S) Medical Inc. DIAGNOSTIC St Fady 1 651618 747919 206142 133282 30 WIRE .035 260cm J wire (929711) SHEATH 6FR Terumo 1 JII539 601234 818401 840510 40 [place] (OFX990) BMW 300cm Obrien 1 [id number] 838118 284000 623384 5 Straight Vascular Westhoff 2 wire (3040203) INFLATOR Merit 1 QX6557 645676 820925 453991 15 Merit Medical BasixCompak (GB0386) TUBING High Merit 1 [id number] 320009 95204 944412 10 Pressure Medical Extension Tubing (Sher) ([id number]) GUIDE 6FR JR Medtronic 1 [id number] 465868 88983 486013 1 4.0 catheter ([id number]) KRISTEL OTW 2.5 Medtronic 1 [id number] 977681 20838 113942 5 [id number] x 12 stent ([id number]) EXOSEAL 6Fr Cardinal 1 EX600 050595 296467 269904 10 (EX600) Health Signature Audit [place] Time Signature Unsigned Intra-Procedure 11/21/2018 Kimmy Newberry 9:41:46 AM RT(R) Signatures Monitor : Kimmy Newberry Signature : RT Date : Time : [facility] [address] [place] [address]
[~2018-11-21 07:13] MED LIST: ASPIRIN81 MG PO; COREG 3.1253.125 MG PO; COZAAR25 MG PO; CYCLOBENZAPRINE10 MG PO; EFFIENT10 MG PO; PRAVACHOL20 MG PO; SYNTHROID75 MCG PO
[2018-11-21] MEDS ORDERED: PLAVIX75 MG PO (07:32)
[2018-11-21] MEDS ORDERED: ESTRACE1 MG PO (07:33)
[2018-11-21 07:42] VITALS: BP 140/75; Ht 172.7 cm; Wt 81.8 kg
[2018-11-21 07:52] LABS: BASOPHILS 0.5 % (0-2); EOSINOPHILS 1.6 % (0-7); IMMATURE GRANULOCYTES 0.2 % (0-5); LYMPHOCYTES 26.5 % (15-50); MCH 30.2 pg (26.0-34.0); MCHC 33.3 g/dL (31.0-37.0); MCV 90.7 fL (80.0-100.0); MEAN PLATELET VOLUME 10.7 fL (7.4-10.4); MONOCYTES 7.7 % (2-11); NEUTROPHILS 63.5 % (40-80); PLATELET COUNT 175 10x3/uL (130-400); RBC 4.63 10x6/uL (4.00-5.40); RDW 14.5 % (11.5-14.5); WBC 8.1 10x3/uL (4.8-10.8)
[2018-11-21 07:56] LABS: ANION GAP 13.2 mmol/L (8-16); CALCIUM 8.6 mg/dL (8.5-10.1); CREATININE - SERUM 1.2 mg/dL (0.6-1.3); POTASSIUM - SERUM 4.2 mmol/L (3.5-5.1)
--- NOTE | 2018-11-21 10:05 | NUR ---
2L NC, NO RESP DISTRESS. RIGHT GROIN 6F EXOSEAL CDI, NO BLEEDING OR HEMATOMA NOTED. NO C/O PAIN OR NAUSEA. VSS. FAMILY AT BEDSIDE, CALL LIGHT WITHIN REACH.
--- NOTE | 2018-11-21 10:35 | NUR ---
RIGHT GROIN 6F EXOSEAL CDI, NO BLEEDING OR HEMATOMA NOTED. 2L NC WITH NO RESP DISTRESS. DENIES ANY NEEDS. VSS. WILL CONTINUE TO MONITOR.
--- NOTE | 2018-11-21 10:50 | NUR ---
RESTING QUIETLY WITH EYES CLOSED. RIGHT GROIN 6F EXOSEAL CDI, NO BLEEDING OR HEMATOMA NOTED. NO NEEDS OR C/O VOICED. VSS. CALL LIGHT WITHIN REACH.
--- NOTE | 2018-11-21 11:20 | NUR ---
CONTINES TO REST COMFORTABLY WITH NO C/O. RIGHT GROIN 6F EXOSEAL CDI, NO BLEEDING OR HEMATOMA NOTED. DENIES ANY NEEDS. VSS. WILL CONTINUE TO MONITOR.
--- NOTE | 2018-11-21 11:50 | NUR ---
RIGHT GROIN 6F EXOSEAL CDI, NO BLEEDING OR HEMATOMA NOTED. 2L NC WITH NO RESP DISTRESS. NO NEEDS OR C/O VOICED. VSS. WILL CONTINUE TO MONITOR.
--- NOTE | 2018-11-21 13:00 | NUR ---
HOB ELEVATED 30 DEGREES. RIGHT GROIN 6F EXOSEAL CDI, NO BLEEDING NOTED. SIPPING ON DRINK AND EATING SANDWICH WITH NO C/O NAUSEA. VSS. WILL CONTINUE TO MONITOR CLOSELY.
--- NOTE | 2018-11-21 13:35 | NUR ---
LEFT PIV D/C'D WITH CATHETER INTACT, BAND AID TO SITE. UP TO BEDSIDE TO GET DRESSED. AMBULATED TO RESTROOM.
--- NOTE | 2018-11-21 13:47 | NUR ---
DISCHARGE INSTRUCTIONS GIVEN TO PT AND FAMILY, BOTH VERBALIZED UNDERSTANDING.
--- NOTE | 2018-11-21 14:00 | NUR ---
TAKEN OUT VIA WHEELCHAIR BY CATH RESOURCE TECHNICIAN. LEFT FACILITY WITH FAMILY AND ALL PERSONAL BELONGINGS.
== END 2018-11-21 14:00 | disposition home or self-care (01) ==
LOC: D.CATH 07:13
PROVIDERS: ATTEND Internal Medicine Cardiovascular Disease
DX: I25.110 Atherosclerotic heart disease of native coronary artery with unstable angina pectoris (principal); Z01.812 Encounter for preprocedural laboratory examination

== ENCOUNTER → 2019-02-07 10:17 | Outpatient (CLI) | payer BC ==
[2018-11-21 07:42] VITALS: BMI 27.4
[~2019-02-07 10:17] MED LIST changes: +ESTRACE1 MG PO; +PLAVIX75 MG PO
== END | disposition home or self-care (01) ==
LOC: D.HCCARDIO 10:17
PROVIDERS: ATTEND Internal Medicine Cardiovascular Disease
DX: I42.9 Cardiomyopathy, unspecified (principal)